=== PATIENT | female | born 1930 | race Caucasian/White ===

== ENCOUNTER 2020-01-29 11:12 | Inpatient (IN) | payer MEDICARE ==
[~2020-01-29] VITALS: Ht 162.6 cm; Wt 60.3 kg
--- NOTE | 2020-01-29 11:28 | PHYS DOC ---
Past Medical History Past Medical History: A-Fib, CHF, Dementia Smoking Status: Unknown if ever smoked Social History Narrative: nh patient General Adult EDM: Chief Complaint: HYPOTENSION HPI: HPI: Patient is a 89 year old female who arrives via EMS from [facility] with a chief complaint of hypotension. Per intermediate staff patient has had increased weakness over last couple days and was incontinent to urine earlier today. Patient was initially hypotensive per EMS but has since become normotensive with IV fluids. She received 200 cc of normal saline prior to arrival. Patient denies any complaints but history physical review of systems are limited by dementia Review of Systems: Review of Systems: Constitutional: Denies fever or chills. [] Eyes: Denies change in visual acuity. [] HENT: Denies nasal congestion or sore throat. [] Respiratory: Denies cough or shortness of breath. [] Cardiovascular: Denies chest pain or edema. [] GI: Denies abdominal pain, nausea, vomiting, bloody stools or diarrhea. [] : Denies dysuria. [] Musculoskeletal: Denies back pain or joint pain. [] Integument: Denies rash. [] Neurologic: Denies headache, focal weakness or sensory changes. [] Endocrine: Denies polyuria or polydipsia. [] Lymphatic: Denies swollen glands. [] Psychiatric: Denies depression or anxiety. [] Review of systems is limited due to dementia but patient denies any complaints Heart Score: Risk Factors: Risk Factors: DM, Current or recent (<one month) smoker, HTN, HLP, family history of CAD, obesity. Risk Scores: Score 0 - 3: 2.5% MACE over next 6 weeks - Discharge Home Score 4 - 6: 20.3% MACE over next 6 weeks - Admit for Clinical Observation Score 7 - 10: 72.7% MACE over next 6 weeks - Early Invasive Strategies Current Medications: Current Medications Medications (Trade) Dose Ordered Sig/Natalia Start Time Stop Time Status Last Admin Dose Admin Sodium Chloride 1,000 ml @ 1,000 mls/hr 1X ONCE 01/29/20 11:30 01/29/20 12:29 UNV Physical Exam: PE: Constitutional: Well developed, well nourished, no acute distress, non-toxic appearance. [] HENT: Normocephalic, atraumatic, bilateral external ears normal, oropharynx moist, no oral exudates, nose normal. [] Eyes: PERRLA, EOMI, conjunctiva normal, no discharge. [] Neck: Normal range of motion, no tenderness, supple, no stridor. [] Cardiovascular: Regular rate and rhythm, peripheral pulses intact Lungs & Thorax: No respiratory distress lungs clear Abdomen: Bowel sounds normal, soft, no tenderness, no masses, no pulsatile masses. [] Skin: Warm, dry, no erythema, no rash. [] Back: No tenderness, no CVA tenderness. [] Extremities: No tenderness, no cyanosis, no clubbing, ROM intact, no edema. [] Neurologic: Alert and oriented X 1, generalized weakness Psychologic: Affect normal, judgement normal, mood normal. [] Current Patient Data: Labs: Laboratory Tests Test 01/29/20 11:15 01/29/20 11:32 01/29/20 11:38 White Blood Count 9.7 x10^3/uL Red Blood Count 4.47 x10^6/uL Hemoglobin 14.0 g/dL Hematocrit 41.5 % Mean Corpuscular Volume 93 fL Mean Corpuscular Hemoglobin 31 pg Mean Corpuscular Hemoglobin Concent 34 g/dL Red Cell Distribution Width 14.5 % Platelet Count 133 x10^3/uL Neutrophils (%) (Auto) 71 % Lymphocytes (%) (Auto) 18 % Monocytes (%) (Auto) 10 % Eosinophils (%) (Auto) 0 % Basophils (%) (Auto) 1 % Neutrophils # (Auto) 6.9 x10^3/uL Lymphocytes # (Auto) 1.7 x10^3/uL Monocytes # (Auto) 1.0 x10^3/uL Eosinophils # (Auto) 0.0 x10^3/uL Basophils # (Auto) 0.1 x10^3/uL Prothrombin Time 15.7 SEC Prothromb Time International Ratio 1.3 Activated Partial Thromboplast Time 38 SEC Stool Occult Blood Negative Sodium Level 135 mmol/L Potassium Level 4.2 mmol/L Chloride Level 103 mmol/L Carbon Dioxide Level 27 mmol/L Anion Gap 5 Blood Urea Nitrogen 21 mg/dL Creatinine 1.2 mg/dL Estimated GFR (Cockcroft-Gault) 42.3 BUN/Creatinine Ratio 18 Glucose Level 116 mg/dL Lactic Acid Level 1.9 mmol/L Calcium Level 8.8 mg/dL Total Bilirubin 0.8 mg/dL Aspartate Amino Transf (AST/SGOT) 17 U/L Alanine Aminotransferase (ALT/SGPT) 15 U/L Alkaline Phosphatase 36 U/L Troponin I Quantitative 0.055 ng/mL SU-Tvf-M-Type Natriuretic Peptide 1702 pg/mL Total Protein 6.9 g/dL Albumin 3.2 g/dL Albumin/Globulin Ratio 0.9 Thyroid Stimulating Hormone (TSH) 1.215 uIU/mL Glucose (Fingerstick) 112 mg/dL Urine Collection Type U cath Urine Color Yellow Urine Clarity Clear Urine pH 7.0 Urine Specific [place] 1.020 Urine Protein Negative mg/dL Urine Glucose (UA) Negative mg/dL Urine Ketones (Stick) Negative mg/dL Urine Blood Negative Urine Nitrite Negative Urine Bilirubin Negative Urine Urobilinogen Dipstick 1.0 mg/dL Urine Leukocyte Esterase Negative Urine RBC 1-2 /HPF Urine WBC 1-4 /HPF Urine Squamous Epithelial Cells Mod /LPF Urine Bacteria Few /HPF Urine Mucus Marked /LPF Current Medications Medications (Trade) Dose Ordered Sig/Natalia Route PRN Reason Start Time Stop Time Status Last Admin Dose Admin Sodium Chloride 1,000 ml @ 1,000 mls/hr 1X ONCE IV 01/29/20 11:30 01/29/20 12:29 DC 01/29/20 11:36 EKG: EKG: EKG interpreted by me normal sinus rhythm with rate 83 left axis deviation nonspecific ST changes [] Radiology/Procedures: Radiology/Procedures: [][facility] [address] [place], [place] [id number] IMAGING REPORT Signed PATIENT: KIANA HUGHES ACCOUNT: [id number] : 1930 LOCATION: ER AGE: 89 SEX: F EXAM STATUS: REG ER ORD. PHYSICIAN: MORGAN PADILLA MD REASON: weakness PROCEDURE: PORTABLE CHEST 1V Examination: PORTABLE CHEST 1V History: Reason: weakness / Spl. Instructions: / History: Comparison/Correlation: None Findings: Portable upright frontal view chest was obtained. Heart size and pulmonary vasculature are normal. Left perihilar density which probably represents vasculature is seen. Moderate size hiatal hernia. No infiltrate or pleural effusion. No pneumothorax. No acute bony process. Impression: Hiatal hernia. Left perihilar density which probably represents vasculature and overlapping shadows. Correlate with previous exams if available. Interval follow-up two-view chest x-ray exam in 12 weeks is recommended if stability is unknown. Electronically signed by: Evens Guerrero MD (01/29/2020 12:21 PM) [id number] DICTATED and SIGNED BY: EVENS GUERRERO MD DATE: 01/29/[address] [facility] [address] [place] [address] IMAGING REPORT Signed PATIENT: KIANA HUGHES ACCOUNT: [id number] : 1930 LOCATION: ER AGE: 89 SEX: F EXAM STATUS: REG ER ORD. PHYSICIAN: MORGAN PADILLA MD REASON: weakness PROCEDURE: CT HEAD WO CONTRAST EXAM: CT head without contrast INDICATION: Weakness COMPARISON: None TECHNIQUE: Axial CT imaging through the head without intravenous contrast. One or more of the following individualized dose reduction techniques were utilized for this examination: 1. Automated exposure control 2. Adjustment of the mA and/or kV according to patient size 3. Use of iterative reconstruction technique. FINDINGS: The ventricles and sulci are moderately enlarged reflecting age-related volume loss. There is moderate periventricular and deep white matter hypoattenuation. Oneal-white matter differentiation is maintained. There is no intracranial hemorrhage, acute infarct, or mass lesion. Basal cisterns are clear. There are calcifications in the internal carotid arteries. The skull and scalp are intact. Paranasal sinuses and mastoid air cells are clear. There are surgical changes of the globes. Orbits are intact. IMPRESSION: 1. No acute intracranial abnormality. 2. Moderate volume loss and moderate white matter disease, likely related to chronic microvascular ischemia. Electronically signed by: Joanna Nickerson MD (01/29/2020 12:34 PM) [id number] DICTATED and SIGNED BY: JOANNA NICKERSON MD DATE: 01/29/20 1234 Course & Med Decision Making: Course & Med Decision Making Pertinent Labs and Imaging studies reviewed. (See chart for details) [] 89-year-old female presents with hypotension. Patient has no complaints and blood pressure is borderline hypotensive on my assessment. Patient given IV fluids and remains clinically well in the ER. Patient will be admitted to Dr. Manley for further evaluation treatment no obvious etiology has been found. Josie Disclaimer: Josie Disclaimer: This electronic medical record was generated, in whole or in part, using a voice recognition dictation system. Departure Departure Impression: Primary Impression: Hypotension Disposition: ADMITTED INPATIENT Admitting Physician: JEY young) Condition: STABLE Referrals: VIJAY LANGSTON MD (PCP) Justicifation of Admission Dx: Justifications for Admission: Justification of Admission Dx: Yes (hypotension) MORGAN PADILLA MD Jan 29, 2020 11:28
[2020-01-29] MEDS ORDERED: IV NORMAL SALINE 1000ML BAG 1,000 ML IV ONE (11:30)
[2020-01-29 11:42] LABS: BASO # 0.1 x10^3/uL (0.0-0.2); BASO % 1 % (0-3); EOS % 0 % (0-3); HEMATOCRIT 41.5 % (36.0-47.0); LYMPH # 1.7 x10^3/uL (1.0-4.8); LYMPH % 18 % (24-48); MEAN CORPUSCULAR HEMOGLOBIN 31 pg (25-35); MEAN CORPUSCULAR HGB CONC 34 g/dL (31-37); MEAN CORPUSCULAR VOLUME 93 fL (79-100); MONO % 10 % (0-9); NEUT # 6.9 x10^3/uL (1.8-7.7); NEUT % 71 % (31-73); PLATELET COUNT 133 x10^3/uL (140-400); RED BLOOD COUNT 4.47 x10^6/uL (3.50-5.40); RED CELL DISTRIBUTION WIDTH 14.5 % (11.5-14.5); WHITE BLOOD COUNT 9.7 x10^3/uL (4.0-11.0)
[2020-01-29 11:52] LABS: FECAL OB PT NEGATIVE (NEG)
[2020-01-29 11:53] LABS: BILIRUBIN,URINE NEGATIVE (NEG); CLARITY,URINE CLEAR; COLOR,URINE YELLOW; NITRITE,URINE NEGATIVE (NEG); PROTEIN,URINE NEGATIVE (NEG-TRACE)
[2020-01-29 11:53] LABS: CALCIUM 8.8 mg/dL (8.5-10.1); CREATININE 1.2 mg/dL (0.6-1.0); GFR 42.3; POTASSIUM 4.2 mmol/L (3.5-5.1)
[2020-01-29 11:55] LABS: PROTHROMBIN TIME PATIENT 15.7 SEC (11.7-14.0)
[2020-01-29 11:58] LABS: ALBUMIN 3.2 g/dL (3.4-5.0); ALBUMIN/GLOBULIN RATIO 0.9 (1.0-1.7); TOTAL BILIRUBIN 0.8 mg/dL (0.2-1.0); TOTAL PROTEIN 6.9 g/dL (6.4-8.2)
[2020-01-29 12:04] LABS: BACTERIA,URINE FEW /HPF (0-FEW); SQUAMOUS EPITHELIAL CELL,UR MOD /LPF
--- NOTE | 2020-01-29 12:24 | RAD ---
Examination: PORTABLE CHEST 1V History: Reason: weakness / Spl. Instructions: / History: Comparison/Correlation: None Findings: Portable upright frontal view chest was obtained. Heart size and pulmonary vasculature are normal. Left perihilar density which probably represents vasculature is seen. Moderate size hiatal hernia. No infiltrate or pleural effusion. No pneumothorax. No acute bony process. Impression: Hiatal hernia. Left perihilar density which probably represents vasculature and overlapping shadows. Correlate with previous exams if available. Interval follow-up two-view chest x-ray exam in 12 weeks is recommended if stability is unknown. Electronically signed by: Evens Carlin MD (01/29/2020 12:21 PM) [id number]
--- NOTE | 2020-01-29 12:37 | RAD ---
EXAM: CT head without contrast INDICATION: Weakness COMPARISON: None TECHNIQUE: Axial CT imaging through the head without intravenous contrast. One or more of the following individualized dose reduction techniques were utilized for this examination: 1. Automated exposure control 2. Adjustment of the mA and/or kV according to patient size 3. Use of iterative reconstruction technique. FINDINGS: The ventricles and sulci are moderately enlarged reflecting age-related volume loss. There is moderate periventricular and deep white matter hypoattenuation. Oneal-white matter differentiation is maintained. There is no intracranial hemorrhage, acute infarct, or mass lesion. Basal cisterns are clear. There are calcifications in the internal carotid arteries. The skull and scalp are intact. Paranasal sinuses and mastoid air cells are clear. There are surgical changes of the globes. Orbits are intact. IMPRESSION: 1. No acute intracranial abnormality. 2. Moderate volume loss and moderate white matter disease, likely related to chronic microvascular ischemia. Electronically signed by: Joanna Nickerson MD (01/29/2020 12:34 PM) [id number]
[2020-01-29] MEDS ORDERED: ONDANSETRON PF 4 MG/2 ML VIAL. IV PRN (13:30)
--- NOTE | 2020-01-29 14:58 | NUR ---
Patient arrived to room 674 via bed from ER at 1458. Patient alert to self only. VSS. No complaints of pain at this time. Family updated. Will continue to monitor.
[2020-01-29 15:07] VITALS: BP 100/66
[2020-01-29] MEDS ORDERED: DONE5TAB56 PO (17:22)
[2020-01-29] MEDS ORDERED: LEVO25TA4 PO (17:22)
[2020-01-29] MEDS ORDERED: CHOL500021 PO (17:22)
[2020-01-29] MEDS ORDERED: ASPI-886 PO (17:22)
[2020-01-29] MEDS ORDERED: SERT100T PO (17:22)
[2020-01-29 19:50] VITALS: BP 127/77
--- NOTE | 2020-01-29 19:55 | HP ---
ADMIT DATE: 01/29/2020 CHIEF COMPLAINT: Hypotension. HISTORY OF PRESENT ILLNESS: The patient is a pleasant elderly female who presented from a half-way. Basically, she came in because she was weak. She was having mental status change. When she got to the ER, she is noted to have blood pressure in the 60s. We gave her some fluids and we have got it up to the 90s, but the patient is still quite weak and confused. I discussed the case with the ER physician. We are going to admit the patient and give her more IV fluids and rule her out for COVID-19 as the half-way she is from has an extensive history of COVID-19. PAST MEDICAL HISTORY: AFib, CHF, and dementia. ALLERGIES: None. FAMILY HISTORY: Diabetes. SOCIAL HISTORY: She does not drink, smoke, or take drugs. She lives at the half-way. She is retired. MEDICATIONS: Reviewed, please refer to the MRAD. REVIEW OF SYSTEMS: Unable to obtain. She is too confused. PHYSICAL EXAMINATION: VITALS: Within normal limits and are stable. GENERAL: She is pleasantly confused. HEENT: Normal cephalic atraumatic, external auditory canals are patent. EYES: Extraocular muscles are intact, pupils are equally round and reactive to light and accommodation. MUSCULOSKELETAL: Well developed, well nourished, good range of motion. ENDOCRINE: No thyromegaly was palpated. LYMPHATICS: No cervical chain or axillary nodes were noted. HEMATOPOIETIC: No bruising. NECK: Supple, no JVD, no thyromegaly was noted. LUNGS: Clear to auscultation in all lung olivarez without rhonchi or wheezing. HEART: RRR, S1, S2 present. Peripheral pulses intact, no obvious murmurs were noted. ABDOMEN: Soft, nontender. Positive bowel sounds no organomegaly, normal bowel sounds. EXTREMITIES: Without any cyanosis, clubbing, or edema. Pedal pulses intact, Homans sign is negative. NEUROLOGIC: She is pleasantly confused, but does try to answer my questions. PSYCHIATRIC: She is pleasantly confused. SKIN: No ulcerations or rashes, good skin turgor, no jaundice. VASCULAR: Good capillary refill, neurovascular bundle appears to be intact. LABORATORY DATA: Hematology is normal. Electrolytes are pending. INR is 1.3. Urinalysis is negative. Stool guaiac testing was negative. Her BNP level was 1702 and troponin was 0.055. TSH was 1.2. DIAGNOSTIC DATA: CT of the head shows volume loss and white matter disease secondary to microvascular ischemia. Chest x-ray, hiatal hernia and a left perihilar density. ASSESSMENT AND PLAN: Critical hypotension, weakness, metabolic encephalopathy, coagulopathy, hyponatremia with a sodium of 135. The patient has been admitted. We will give gentle IV fluids. We will try to resume her home medications. Deep venous thrombosis prophylaxis. Full code. Physical Therapy and Occupational Therapy. We are ruling out COVID-19. PROGNOSIS: Guarded. BEAR CROSS DO DR: DARIA/papi JOB#: [id number] / [id number]
[2020-01-29] MEDS: DONEPEZIL HCL 5 MG TABLET. PO SCH (20:53)
[2020-01-29 23:25] VITALS: BP 107/71
[2020-01-30 03:25] VITALS: BP 111/68
[2020-01-30] MEDS: LEVOTHYROXINE 25 MCG TABLET. PO SCH (06:09)
[2020-01-30 07:59] VITALS: BP 95/54
[2020-01-30] MEDS: SERTRALINE 50 MG TABLET. PO SCH (08:52)
[2020-01-30] MEDS: CHOLECALCIFEROL (VITAMIN D3) 1,000 UNIT TABLET PO SCH (08:52)
[2020-01-30] MEDS: ASPIRIN ENTERIC COATED 81 MG TABLET.DR. PO SCH (08:52)
--- NOTE | 2020-01-30 09:49 | PDOC ---
[employer] PROGRESS NOTE Date of Service DOS: DATE: 01/30/20 TIME: 09:47 Chief Complaint Chief Complaint Hypertension History of Present Illness History of Present Illness Patient with orthostatic hypotension that responded to IV fluid bolus. Discussed with RN, MERLE test pending and plan to discharge back to nursing facility. No acute events overnight Vitals/I&O Vitals/I&O: Vital Signs Date Time Temp Pulse Resp B/P (MAP) Pulse Ox O2 Delivery O2 Flow Rate FiO2 01/30/20 07:59 98.4 78 18 95/54 (68) 91 Room Air 98.4 I & O 01/29/20 01/29/20 01/30/20 15:00 23:00 07:00 Intake Total 1000 ml 100 ml 150 ml Balance 1000 ml 100 ml 150 ml Physical Exam General: Alert Heart: Regular rate Lungs: Clear Abdomen: Soft, No masses Extremities: No clubbing, No cyanosis Skin: No rashes Labs Labs: Laboratory Tests Test 01/29/20 11:15 01/29/20 11:32 01/29/20 11:38 01/29/20 18:00 White Blood Count 9.7 x10^3/uL (4.0-11.0) Red Blood Count 4.47 x10^6/uL (3.50-5.40) Hemoglobin 14.0 g/dL (12.0-15.5) Hematocrit 41.5 % (36.0-47.0) Mean Corpuscular Volume 93 fL (79-100) Mean Corpuscular Hemoglobin 31 pg (25-35) Mean Corpuscular Hemoglobin Concent 34 g/dL (31-37) Red Cell Distribution Width 14.5 % (11.5-14.5) Platelet Count 133 x10^3/uL (140-400) Neutrophils (%) (Auto) 71 % (31-73) Lymphocytes (%) (Auto) 18 % (24-48) Monocytes (%) (Auto) 10 % (0-9) Eosinophils (%) (Auto) 0 % (0-3) Basophils (%) (Auto) 1 % (0-3) Neutrophils # (Auto) 6.9 x10^3/uL (1.8-7.7) Lymphocytes # (Auto) 1.7 x10^3/uL (1.0-4.8) Monocytes # (Auto) 1.0 x10^3/uL (0.0-1.1) Eosinophils # (Auto) 0.0 x10^3/uL (0.0-0.7) Basophils # (Auto) 0.1 x10^3/uL (0.0-0.2) Prothrombin Time 15.7 SEC (11.7-14.0) Prothromb Time International Ratio 1.3 (0.8-1.1) Activated Partial Thromboplast Time 38 SEC (24-38) Stool Occult Blood Negative (NEG) Sodium Level 135 mmol/L (136-145) Potassium Level 4.2 mmol/L (3.5-5.1) Chloride Level 103 mmol/L (98-107) Carbon Dioxide Level 27 mmol/L (21-32) Anion Gap 5 (6-14) Blood Urea Nitrogen 21 mg/dL (7-20) Creatinine 1.2 mg/dL (0.6-1.0) Estimated GFR (Cockcroft-Gault) 42.3 BUN/Creatinine Ratio 18 (6-20) Glucose Level 116 mg/dL (70-99) Lactic Acid Level 1.9 mmol/L (0.4-2.0) Calcium Level 8.8 mg/dL (8.5-10.1) Total Bilirubin 0.8 mg/dL (0.2-1.0) Aspartate Amino Transf (AST/SGOT) 17 U/L (15-37) Alanine Aminotransferase (ALT/SGPT) 15 U/L (14-59) Alkaline Phosphatase 36 U/L (46-116) Troponin I Quantitative 0.055 ng/mL (0.000-0.055) 0.044 ng/mL (0.000-0.055) JK-Gig-G-Type Natriuretic Peptide 1702 pg/mL (0-449) Total Protein 6.9 g/dL (6.4-8.2) Albumin 3.2 g/dL (3.4-5.0) Albumin/Globulin Ratio 0.9 (1.0-1.7) Thyroid Stimulating Hormone (TSH) 1.215 uIU/mL (0.358-3.74) Glucose (Fingerstick) 112 mg/dL (70-99) Urine Collection Type U cath Urine Color Yellow Urine Clarity Clear Urine pH 7.0 (<5.0-8.0) Urine Specific [place] 1.020 (1.000-1.030) Urine Protein Negative mg/dL (NEG-TRACE) Urine Glucose (UA) Negative mg/dL (NEG) Urine Ketones (Stick) Negative mg/dL (NEG) Urine Blood Negative (NEG) Urine Nitrite Negative (NEG) Urine Bilirubin Negative (NEG) Urine Urobilinogen Dipstick 1.0 mg/dL (0.2 mg/dL) Urine Leukocyte Esterase Negative (NEG) Urine RBC 1-2 /HPF (0-2) Urine WBC 1-4 /HPF (0-4) Urine Squamous Epithelial Cells Mod /LPF Urine Bacteria Few /HPF (0-FEW) Urine Mucus Marked /LPF Test 01/30/20 00:20 01/30/20 06:10 Troponin I Quantitative 0.049 ng/mL (0.000-0.055) 0.042 ng/mL (0.000-0.055) Review of Systems Review of Systems: Unable to obtain due to dementia Assessment and Plan Assessmemt and Plan Problems Medical Problems: (1) Hypotension Status: Acute Comment Review of Relevant I have reviewed the following items tammi (where applicable) has been applied. Medications: Current Medications Medications (Trade) Dose Ordered Sig/Natalia Route PRN Reason Start Time Stop Time Status Last Admin Dose Admin Sodium Chloride 1,000 ml @ 1,000 mls/hr 1X ONCE IV 01/29/20 11:30 01/29/20 12:29 DC 01/29/20 11:36 Aspirin (Ecotrin) 81 mg DAILY PO 01/30/20 09:00 01/30/20 08:52 Donepezil HCl (Aricept) 5 mg QHS PO 01/29/20 21:00 01/29/20 20:53 Levothyroxine Sodium (Synthroid) 25 mcg DAILY06 PO 01/30/20 06:00 01/30/20 06:09 Vitamin D (Vitamin D3) 1,000 unit DAILY PO 01/30/20 09:00 01/30/20 08:52 Sertraline HCl (Zoloft) 100 mg DAILY PO 01/30/20 09:00 01/30/20 08:52 Justifications for Admission Other Justification SHARLENE YEH MD Jan 30, 2020 09:49
--- NOTE | 2020-01-30 10:42 | EKG ---
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
[2020-01-30 11:00] VITALS: BP 102/63
[2020-01-30 16:03] VITALS: BP 94/67
--- NOTE | 2020-01-30 17:34 | NUR ---
FREDDIE following. Spoke with RN and reviewed chart. Pt resides in LTC at [facility] and will return on discharge. Pt COVID pending, room air, oral medications. FREDDIE following. Addendum: 01/31/20 at 1717 by WILMER FRAZIER Pt actually in PRISON at [facility]
[2020-01-30 20:00] VITALS: BP 119/71
[2020-01-30] MEDS: DONEPEZIL HCL 5 MG TABLET. PO SCH (20:55)
[2020-01-30 23:57] VITALS: BP 131/58
[2020-01-31] VITALS (7 sets, daily range): BP systolic 110–159; BP diastolic 56–87
--- NOTE | 2020-01-31 04:00 | NUR ---
Patient went into a fib rvr. Orders received. Gave 500 bolus prior to administrating ordered medications and patient converted into sinus rhythm. Holding metoprolol for now. Will continue to monitor.
[2020-01-31] MEDS ORDERED: IV NORMAL SALINE 1000ML BAG 500 ML IV ONE (04:15)
[2020-01-31] MEDS ORDERED: METOPROLOL SUCC 24HR ER 25 MG TAB.ER.24H. PO ONE (04:45)
[2020-01-31] MEDS ORDERED: METOPROLOL TARTRATE 5 MG/5 ML VIAL. IVP ONE (04:45)
[2020-01-31] MEDS: LEVOTHYROXINE 25 MCG TABLET. PO SCH (04:59)
[2020-01-31] MEDS: CHOLECALCIFEROL (VITAMIN D3) 1,000 UNIT TABLET PO SCH (08:33)
[2020-01-31] MEDS: ASPIRIN ENTERIC COATED 81 MG TABLET.DR. PO SCH (08:33)
[2020-01-31] MEDS: SERTRALINE 50 MG TABLET. PO SCH (08:33)
--- NOTE | 2020-01-31 09:27 | PDOC2 ---
EVIN WILLAMS METAL CAN INSPECTOR 01/31/20 0926: CARDIAC CONSULT DATE OF CONSULT Date of Consult DATE: 01/31/20 TIME: 09:20 REASON FOR CONSULT Reason for Consult: AFIB RVR REFERRING PHYSICIAN Referring Physician: Bowen SOURCE Source: Chart review, Patient HISTORY OF PRESENT ILLNESS HISTORY OF PRESENT ILLNESS This is an 89 yo femlae admitted from [facility] for noted hypotension. Reports of some weakness. No complains of chest pain or SOA and appears comfortable currently. Pt appears dehydrated. Unfortunately she is confused but pleasant. She is not in any discomfort. No known hx of arrhythmias or CAD. She did have CVA and deemed to be from small vessel disease from her [facility] visit in 06/2019. PAST MEDICAL HISTORY Cardiovascular: Hyperlipidemia, Other (carotid artery disease) CENTRAL NERVOUS SYSTEM: CVA (lacunar), Dementia (alzheimers) Psych: Anxiety, Other (PTSD) Musculoskeletal: Osteoarthritis Rheumatologic: No pertinent hx Infectious disease: Herpes zoster Renal/: No pertinent hx Endocrine: Hypothyroidism Dermatology: Other (skin CA) FAMILY HISTORY Family History noncontributory to age SOCIAL HISTORY Smoke: No ALCOHOL: none Lives: Shelter CURRENT MEDICATIONS CURRENT MEDICATIONS Current Medications Medications (Trade) Dose Ordered Sig/Natalia Route PRN Reason Start Time Stop Time Status Last Admin Dose Admin Sodium Chloride 500 ml @ 1,000 mls/hr 1X ONCE IV 01/31/20 04:15 01/31/20 04:44 DC 01/31/20 04:14 ALLERGIES ALLERGIES: Coded Allergies: No Known Drug Allergies (Unverified , 01/29/20) ROS Review of System unreliable, pt is only oriented to self PHYSICAL EXAM General: Alert, Cooperative, No acute distress HEENT: Atraumatic, Mucous membr. moist/pink Lungs: Clear to auscultation, Normal air movement Heart: Regular rate (SR), Normal S1, Normal S2, Other (3/6 diastolic murmur to erbs) Abdomen: Soft, No tenderness Extremities: No cyanosis, No edema Skin: No breakdown, No significant lesion Neuro: Normal speech, Sensation intact Psych/Mental Status: Other (confused) MUSCULOSKELETAL: Osteoarthritic changes both hands VITALS/I&O VITALS/I&O: Vital Signs Date Time Temp Pulse Resp B/P (MAP) Pulse Ox O2 Delivery O2 Flow Rate FiO2 01/31/20 07:20 97.8 65 18 129/80 (96) 95 Room Air 97.8 I & O 01/30/20 01/30/20 01/31/20 15:00 23:00 07:00 Intake Total 480 ml 900 ml Balance 480 ml 900 ml ECHOCARDIOGRAM ECHOCARDIOGRAM Rest Echo: 07/05/2019 [facility] Normal left ventricular systolic function. EF~ 65% Technically difficult agitated saline contrast contrast study, inconclusive to assess inter-atrial shunt Mild to moderate aortic regurgitation Mildly dilated sinuses of valsalva (4.0 cm) and proximal ascending aorta (4.0 cm) Normal estimated peak systolic PA pressure of 23 mmHg Trivial pericardial effusion adjacent to the right ventricle ASSESSMENT/PLAN ASSESSMENT/PLAN 1. PAFIB with RVR burst- new finding. Maintaining SR 2. DEEPA vs CKD: likely from dehydration 3. Hypotension: poor hydration. Improved after IVF 4. Alzheimers Dementia 5. Hypothyroidism: on replacement 6. Hx of CVA: last noted 06/2019 ruled from small vessel disease 7. HLP: noted LDL 188 at [facility] Recommendations 1. Low dose metoprolol. Start statin per level. 2. Push fluids. 3. No need for another echo with recent one noted above. 4. Deemed poor candidate for anticoagulation before due to high risk for falls. ASA for stroke prevention 5. Follow up in office with Dr. Foster on March 04 at 1030 AM EDMUND FOSTER MD 01/31/20 1853: CARDIAC CONSULT ASSESSMENT/PLAN ASSESSMENT/PLAN Patient seen and evaluated Paroxysmal atrial fibrillation. Now in sinus rhythm. Continuing low-dose metoprolol with telemetry monitoring. Poor candidate for long-term anticoagulation. Acute kidney injury. Fluids and monitoring of lab. Hypotension. Fluids as above. Improved. Hypothyroidism on replacement. History of a CVA. Continue present treatment and monitoring. Hyperlipidemia. Statins. Alzheimer's dementia. Thank you for allowing us to participate in the care of your patient. EVIN WILLAMS APRN Jan 31, 2020 09:26 EDMUND FOSTER MD Jan 31, 2020 18:53
--- NOTE | 2020-01-31 11:45 | PDOC ---
[employer] PROGRESS NOTE Date of Service DOS: DATE: 01/31/20 TIME: 11:41 Chief Complaint Chief Complaint Hypertension History of Present Illness History of Present Illness 01/30/2020 Patient with orthostatic hypotension that responded to IV fluid bolus. Discussed with RN, COVID test pending and plan to discharge back to nursing facility. No acute events overnight 01/31/2020 Patient feels okay denies any symptoms. She is COVID-19 negative. TTE pending, if normal results may discharge tomorrow. Discussed with RN. Vitals/I&O Vitals/I&O: Vital Signs Date Time Temp Pulse Resp B/P (MAP) Pulse Ox O2 Delivery O2 Flow Rate FiO2 01/31/20 08:00 Room Air 01/31/20 07:20 97.8 65 18 129/80 (96) 95 97.8 I & O 01/30/20 01/30/20 01/31/20 15:00 23:00 07:00 Intake Total 480 ml 900 ml Balance 480 ml 900 ml Physical Exam General: Alert Heart: Regular rate Lungs: Clear Abdomen: Soft, No masses Extremities: No clubbing, No cyanosis Skin: No rashes Review of Systems Review of Systems: All systems negative Assessment and Plan Assessmemt and Plan Problems Medical Problems: (1) Hypotension Status: Acute Comment Review of Relevant I have reviewed the following items tammi (where applicable) has been applied. Medications: Current Medications Medications (Trade) Dose Ordered Sig/Natalia Route PRN Reason Start Time Stop Time Status Last Admin Dose Admin Sodium Chloride 500 ml @ 1,000 mls/hr 1X ONCE IV 01/31/20 04:15 01/31/20 04:44 DC 01/31/20 04:14 Justifications for Admission Other Justification SHARLENE YEH MD Jan 31, 2020 11:45
[2020-01-31 11:50] LABS: CALCIUM 8.8 mg/dL (8.5-10.1); CREATININE 0.8 mg/dL (0.6-1.0); GFR 67.5; MAGNESIUM 2.2 mg/dL (1.8-2.4); POTASSIUM 3.9 mmol/L (3.5-5.1)
--- NOTE | 2020-01-31 17:17 | NUR ---
SW following. Spoke with RN and reviewed chart. FREDDIE phoned and faxed clinicals to [facility] for coordination of care. Pt resides in [facility] at [facility] and will return on discharge. Pt COVID negative. Pt transferred to and [facility]I Mera to follow.
[2020-01-31 17:25] LABS: CHOLESTEROL/HDL RATIO 8.2
[2020-01-31] MEDS ORDERED: ATORVASTATIN CALCIUM 40 MG TABLET. PO SCH (21:00)
[2020-01-31] MEDS: METOPROLOL TART IMMED RELEASE 25 MG TABLET. PO SCH (21:16)
[2020-01-31] MEDS: DONEPEZIL HCL 5 MG TABLET. PO SCH (21:16)
[2020-02-01 02:04] VITALS: BP 114/63
[2020-02-01] MEDS: LEVOTHYROXINE 25 MCG TABLET. PO SCH (06:21)
[2020-02-01 07:04] VITALS: BP 101/60
[2020-02-01] MEDS: CHOLECALCIFEROL (VITAMIN D3) 1,000 UNIT TABLET PO SCH (08:41)
[2020-02-01] MEDS: METOPROLOL TART IMMED RELEASE 25 MG TABLET. PO SCH (08:41)
[2020-02-01] MEDS: ASPIRIN ENTERIC COATED 81 MG TABLET.DR. PO SCH (08:41)
[2020-02-01] MEDS: SERTRALINE 50 MG TABLET. PO SCH (08:42)
[2020-02-01 10:25] VITALS: BP 110/68
--- NOTE | 2020-02-01 11:15 | PDOC ---
[employer] PROGRESS NOTE Date of Service DOS: DATE: 02/01/20 TIME: 11:12 Chief Complaint Chief Complaint Hypotension, Weakness History of Present Illness History of Present Illness 02/01/2020 Pt seen and examined. LINDA RN and CM. Plan to DC to SNU. 01/30/2020 Patient with orthostatic hypotension that responded to IV fluid bolus. Discussed with RN, COVID test pending and plan to discharge back to nursing facility. No acute events overnight 01/31/2020 Patient feels okay denies any symptoms. She is COVID-19 negative. TTE pending, if normal results may discharge tomorrow. Discussed with RN. Vitals/I&O Vitals/I&O: Vital Signs Date Time Temp Pulse Resp B/P (MAP) Pulse Ox O2 Delivery O2 Flow Rate FiO2 02/01/20 10:25 98.2 72 18 110/68 (82) 95 Room Air 98.2 I & O 01/31/20 01/31/20 02/01/20 15:00 23:00 07:00 Intake Total 400 ml 340 ml Balance 400 ml 340 ml Physical Exam General: Alert, Cooperative, No acute distress Heart: Regular rate (SR), Normal S1, Normal S2, Other (3/6 diastolic murmur to erbs) Lungs: Clear Abdomen: Soft, No tenderness Extremities: No cyanosis, No edema Skin: No breakdown, No significant lesion Review of Systems Review of Systems: No SOB. No fever. Assessment and Plan Assessmemt and Plan Problems Medical Problems: (1) Hypotension Status: Acute Assessment: Hypotension Generalized weakness Paroxysmal atrial fib. Hyperlipidemia. Plan: Continue statin. Continue Metoprolol. Continue Home meds. PT OT DC to SNU Appreciate subspecialty input. Comment Review of Relevant I have reviewed the following items tammi (where applicable) has been applied. Medications: Current Medications Medications (Trade) Dose Ordered Sig/Natalia Route PRN Reason Start Time Stop Time Status Last Admin Dose Admin Metoprolol Tartrate (Lopressor) 12.5 mg BID PO 01/31/20 21:00 01/31/20 21:16 Atorvastatin Calcium (Lipitor) 40 mg QHS PO 01/31/20 21:00 01/31/20 21:16 Justifications for Admission Other Justification CASTLE,NIAL K III DO Feb 01, 2020 11:15
--- NOTE | 2020-02-01 11:20 | NUR ---
FREDDIE following. Discussed with RN, pt from [facility]. FREDDIE spoke with pt's daughter/DPOA, Tameka, she does not want patient to go to [facility], she would like a different facility, as she did not have a good experience with the SNU at [facility]. Tameka agreeable to referral to [facility], as well as [facility] for the memory care SNU unit. [facility] memory care unit does not have any bed availability. FREDDIE faxed referral to [facility] to see if they can accept pt and then potential transfer pt to the memory care unit if a bed opens up. Pt's daughter will be at [facility] today, SW to discuss again when she gets here. Awaiting acceptance decision from [facility] or [facility]. FREDDIE will continue to follow. Addendum: 02/01/20 at 1349 by JESSICA FRAZIER FREDDIE met with pt and pt's daughter, Tameka (no isolation precautions at the time). Tameka agreeable to placement at [facility]. Pt accepted at [facility], transportation arranged for between [id number]. RN and Tameka notified. Pt choice of vendor form completed. No further SW needs.
[2020-02-01] MEDS ORDERED: ATOR40TA59 PO (12:00)
[2020-02-01] MEDS ORDERED: METO25TA4 PO (12:00)
--- NOTE | 2020-02-01 12:01 | SNU/HH DC ---
DISCHARGE ORDERS DISCHARGE INFORMATION: FINAL DIAGNOSIS Problems Medical Problems: (1) Hypotension Status: Acute CONDITION ON DISCHARGE: Stable CODE STATUS: Code Status: DNR/DNI INTERMEDIATE: SNF STAY <30 DAYS: Yes HOSPICE: HOSPICE: No HOSPICE EVAL & TREAT: No LTAC: ADMIT TO LTAC: No POST DISCHARGE ORDERS: ACTIVITY ORDERS: Activity as tolerated DIET AFTER DISCHARGE: Cardiac TREATMENT/EQUIPMENT ORDERS: Physical Therapy For: Evalulation/Treatment Occupational Therapy For: Evaluation/Treatment Speech Language Pathology For: Evaluation/Treatment DISCHARGE MEDICATIONS: Home Meds Active Scripts Metoprolol Tartrate (METOPROLOL TARTRATE) 25 Mg Tablet, 12.5 MG PO BID for . for 30 Days, #30 TAB Prov:CASTLE,NIAL K III DO 02/01/20 Atorvastatin Calcium (ATORVASTATIN CALCIUM) 40 Mg Tablet, 40 MG PO QHS for . for 30 Days, #30 TAB Prov:CASTLE,NIAL K III DO 02/01/20 Reported Medications Cholecalciferol (Vitamin D3) (D3-50) 50,000 Unit Capsule, 1000 UNITS PO DAILY for supplement for 28 Days, #4 CAP 0 Refills 01/29/20 Sertraline Hcl (ZOLOFT) 100 Mg Tablet, 1 TAB PO DAILY for depression, #30 TAB 5 Refills 01/29/20 Levothyroxine Sodium (LEVOTHYROXINE SODIUM) 25 Mcg Tablet, 1 TAB PO DAILY for hypothyroidism, #30 TAB 5 Refills 01/29/20 Aspirin (ASPIRIN EC) 81 Mg Tablet.dr, 1 TAB PO DAILY for cva, #30 TAB 3 Refills 01/29/20 Donepezil Hcl (ARICEPT) 5 Mg Tablet, 1 TAB PO QHS for dementia for 30 Days, #30 TAB 0 Refills 01/29/20 CASTLE,NIAL K III DO Feb 01, 2020 12:01
--- NOTE | 2020-02-01 14:55 | PDOC ---
PROGRESS NOTES Date of Service DATE: 02/01/20 TIME: 14:54 Subjective Subjective Patient seen and examined Objective Objective Vital Signs Date Time Temp Pulse Resp B/P (MAP) Pulse Ox O2 Delivery O2 Flow Rate FiO2 02/01/20 10:25 98.2 72 18 110/68 (82) 95 Room Air 98.2 Intake and Output 02/01/20 07:00 Intake Total 740 ml Balance 740 ml Intake Oral 740 ml # Voids 9 # Bowel Movements 2 Physical Exam Abdomen: Normal bowel sounds Heart: Regular rate General: mild distress Lungs: Other (Minimally decreased breath sounds) Assessment Assessment Problems Medical Problems: (1) Hypotension Status: Acute Paroxysmal atrial fibrillation. Now in sinus rhythm. Continuing low-dose metoprolol. Poor candidate for long-term anticoagulation. Acute kidney injury. Fluids and monitoring of lab. Hypotension. Fluids as above. Improved. COVID testing negative Hypothyroidism on replacement. History of a CVA. Continue present treatment and monitoring. Hyperlipidemia. Statins. Alzheimer's dementia. Comment Review of Relevant I have reviewed the following items tammi (where applicable) has been applied. Labs Laboratory Tests Test 01/31/20 10:31 Sodium Level 137 mmol/L (136-145) Potassium Level 3.9 mmol/L (3.5-5.1) Chloride Level 104 mmol/L (98-107) Carbon Dioxide Level 25 mmol/L (21-32) Anion Gap 8 (6-14) Blood Urea Nitrogen 14 mg/dL (7-20) Creatinine 0.8 mg/dL (0.6-1.0) Estimated GFR (Cockcroft-Gault) 67.5 Glucose Level 89 mg/dL (70-99) Calcium Level 8.8 mg/dL (8.5-10.1) Magnesium Level 2.2 mg/dL (1.8-2.4) Triglycerides Level 112 mg/dL (0-150) Cholesterol Level 321 mg/dL (0-200) LDL Cholesterol, Calculated 260 mg/dL (0-100) VLDL Cholesterol, Calculated 22 mg/dL (0-40) Non-HDL Cholesterol Calculated 282 mg/dL (0-129) HDL Cholesterol 39 mg/dL (40-60) Cholesterol/HDL Ratio 8.2 Microbiology 01/29/20 Blood Culture - Preliminary, Resulted NO GROWTH AFTER 3 DAYS Medications Current Medications Sodium Chloride 1,000 ml @ 1,000 mls/hr 1X ONCE IV Last administered on 01/29/20at 11:36; Start 01/29/20 at 11:30; Stop 01/29/20 at 12:29; Status DC Ondansetron HCl (Zofran) 4 mg PRN Q8HRS PRN IV NAUSEA/VOMITING; Start 01/29/20 at 13:30; Stop 01/30/20 at 13:29; Status DC Aspirin (Ecotrin) 81 mg DAILY PO Last administered on 02/01/20at 08:41; Start 01/30/20 at 09:00 Donepezil HCl (Aricept) 5 mg QHS PO Last administered on 01/31/20at 21:16; Start 01/29/20 at 21:00 Levothyroxine Sodium (Synthroid) 25 mcg DAILY06 PO Last administered on 02/01/20at 06:21; Start 01/30/20 at 06:00 Vitamin D (Vitamin D3) 1,000 unit DAILY PO Last administered on 02/01/20at 08:41; Start 01/30/20 at 09:00 Sertraline HCl (Zoloft) 100 mg DAILY PO Last administered on 02/01/20at 08:42; Start 01/30/20 at 09:00 Metoprolol Tartrate (Lopressor Vial) 5 mg 1X ONCE IVP ; Start 01/31/20 at 04:4 5; Stop 01/31/20 at 04:46; Status DC Metoprolol Succinate (Toprol Xl) 25 mg 1X ONCE PO ; Start 01/31/20 at 04:45; Stop 01/31/20 at 04:46; Status DC Sodium Chloride 500 ml @ 1,000 mls/hr 1X ONCE IV Last administered on 01/31/20at 04:14; Start 01/31/20 at 04:15; Stop 01/31/20 at 04:44; Status DC Metoprolol Tartrate (Lopressor) 12.5 mg BID PO Last administered on 01/31/20at 21:16; Start 01/31/20 at 21:00 Atorvastatin Calcium (Lipitor) 40 mg QHS PO Last administered on 01/31/20at 21:16; Start 01/31/20 at 21:00 Active Scripts Active Metoprolol Tartrate 25 Mg Tablet 12.5 Mg PO BID 30 Days Atorvastatin Calcium 40 Mg Tablet 40 Mg PO QHS 30 Days Reported D3-50 (Cholecalciferol (Vitamin D3)) 50,000 Unit Capsule 1,000 Units PO DAILY 28 Days Zoloft (Sertraline Hcl) 100 Mg Tablet 1 Tab PO DAILY Levothyroxine Sodium 25 Mcg Tablet 1 Tab PO DAILY Aspirin Ec (Aspirin) 81 Mg Tablet. 1 Tab PO DAILY Aricept (Donepezil Hcl) 5 Mg Tablet 1 Tab PO QHS 30 Days Vitals/I & O Vital Sign - Last 24 Hours 01/31/20 01/31/20 01/31/20 01/31/20 15:05 16:40 19:21 20:00 Temp 97.6 97.9 100.3 97.6 97.9 100.3 Pulse 89 80 82 Resp 25 25 22 B/P (MAP) 129/77 (94) 145/72 (96) 113/72 (86) Pulse Ox 93 93 94 O2 Delivery Room Air Room Air Room Air Room Air 01/31/20 01/31/20 02/01/20 02/01/20 21:16 23:13 02:04 07:04 Temp 100.1 100.2 98.9 100.1 100.2 98.9 Pulse 82 80 74 71 Resp 20 20 18 B/P (MAP) 113/72 110/73 (85) 114/63 (80) 101/60 (74) Pulse Ox 95 96 94 O2 Delivery Room Air Room Air Room Air 02/01/20 02/01/20 02/01/20 07:35 08:41 10:25 Temp 98.2 98.2 Pulse 71 72 Resp 18 B/P (MAP) 101/60 110/68 (82) Pulse Ox 95 O2 Delivery Room Air Room Air Intake and Output 01/31/20 01/31/20 02/01/20 15:00 23:00 07:00 Intake Total 400 ml 340 ml Balance 400 ml 340 ml Justifications for Admission Other Justification EDMUND PENNINGTON MD Feb 01, 2020 14:55
--- NOTE | 2020-02-01 16:17 | NUR ---
Discharge Note: KIANA HUGHES Discharge instructions and discharge home medications reviewed with Patient and a copy given. All questions have been answered and understanding verbalized. The following instructions and handouts were given: skilled facility packet Discontinued lines and drains: peripheral iv dicontinued Patient discharged [facility]
--- NOTE | 2020-02-03 13:41 | DS ---
DATE OF DISCHARGE: 02/01/2020 ADMISSION DIAGNOSES: Hypotension and possible COVID-19. DISCHARGE DIAGNOSIS: Resolving hypotension. HOSPITAL COURSE: The patient is a pleasant 89-year-old female who is from [place]. We were concerned she could have COVID-19 because of have large outbreak there at that facility. She was hypotensive. We admitted her to the COVID-19 unit, ruled out COVID-19. We gave her IV fluids and empiric IV antibiotics. Consulted Pulmonary and Infectious Disease. Over the next few days, she did well. We discharged to [facility]. DISPOSITION: [facility]. ACTIVITY: As tolerated. DIET: Low sodium. MEDICATIONS: Please see MRAD. TOTAL TIME: [address] [place]OSS DO DR: DARIA/papi JOB#: [id number] / [id number]
== END 2020-02-01 15:35 | DRG 73 ==
LOC: ER 11:12 → 6 SOUTH 13:19 → 2 SOUTH 01-31 16:26
PROVIDERS: ADMIT Internal Medicine; ATTEND Internal Medicine
DX: G90.8 Other disorders of autonomic nervous system (principal); N17.0 Acute kidney failure with tubular necrosis; G93.41 Metabolic encephalopathy; D68.9 Coagulation defect, unspecified; E87.1 Hypo-osmolality and hyponatremia; E86.0 Dehydration; I95.1 Orthostatic hypotension; Z20.828 Contact with and (suspected) exposure to other viral communicable diseases; E03.9 Hypothyroidism, unspecified; E78.5 Hyperlipidemia, unspecified; F02.80 Dementia in other diseases classified elsewhere, unspecified severity, without behavioral disturbance, psychotic disturbance, mood disturbance, and anxiety; G30.9 Alzheimer's disease, unspecified; F43.10 Post-traumatic stress disorder, unspecified; I11.0 Hypertensive heart disease with heart failure; F41.9 Anxiety disorder, unspecified; M19.90 Unspecified osteoarthritis, unspecified site; I48.0 Paroxysmal atrial fibrillation; I50.9 Heart failure, unspecified; K44.9 Diaphragmatic hernia without obstruction or gangrene; Z83.3 Family history of diabetes mellitus; Z86.73 Personal history of transient ischemic attack (TIA), and cerebral infarction without residual deficits
CPT/HCPCS: 36415; 70450; 71045; 80048; 80053; 80061; 81001; 82274; 82962; 83605; 83735; 83880; 84443; 84484; 85025; 85610; 85730; 87040; 93005; 96360; 96361; 99285; J7030; P9612; 97110-GP; 97535-GO; G0378; U0003-CS

== ENCOUNTER 2020-02-09 15:46 | Emergency (ER) | payer MEDICARE ==
[~2020-02-09] VITALS: Ht 144.8 cm; Wt 45.5 kg
[~2020-02-09 15:46] MED LIST: ASPI-886 PO; ATOR40TA59 PO; CHOL500021 PO; DONE5TAB56 PO; LEVO25TA4 PO; METO25TA4 PO; SERT100T PO
--- NOTE | 2020-02-09 16:17 | PHYS DOC ---
Past Medical History Past Medical History: A-Fib, CHF, Dementia (MAIRA BOYD HUNTER TRAPPER) Past Surgical History: Other Additional Past Surgical Histo: UNABLE TO OBTAIN HX (MAIRA BOYD HUNTER TRAPPER) Smoking Status: Unknown if ever smoked Alcohol Use: None (MAIRA BOYD APRN) General Adult EDM: Chief Complaint: MECHANICAL FALL HPI: HPI: Patient is a 89 year old female who presents with here by EMS from [facility] with a unwitnessed fall today and unknown time she was on the floor. Patient has dementia and is alert and oriented to herself. This is her baseline. Patient has a 1 cm laceration to her chin. She has a 2 cm laceration to her right eyebrow. Patient's right eye is bruised and swollen 2+. Patient is on aspirin. Patient denies pain, dizziness, headache, neck pain, back pain, vision changes, chest pain, shortness of breath, abdominal pain, nausea, vomiting, diarrhea. Patient has a history of CHF, A. fib. (MAIRA BOYD HUNTER TRAPPER) Review of Systems: Review of Systems: Constitutional: Denies fever or chills. Fall. [] Eyes: Denies change in visual acuity. [] HENT: Denies nasal congestion or sore throat. [] Respiratory: Denies cough or shortness of breath. [] Cardiovascular: Denies chest pain. Right eye 2+ edema. [] GI: Denies abdominal pain, nausea, vomiting, bloody stools or diarrhea. [] : Denies dysuria. [] Musculoskeletal: Denies back pain or joint pain. [] Integument: Denies rash. laceration to chine and right eye brow. Bruising to right eye brow. [] Neurologic: Denies headache, focal weakness or sensory changes. [] Endocrine: Denies polyuria or polydipsia. [] Lymphatic: Denies swollen glands. [] Psychiatric: Denies depression or anxiety. [] (MAIRA BOYD HUNTER TRAPPER) Heart Score: Risk Factors: Risk Factors: DM, Current or recent (<one month) smoker, HTN, HLP, family history of CAD, obesity. Risk Scores: Score 0 - 3: 2.5% MACE over next 6 weeks - Discharge Home Score 4 - 6: 20.3% MACE over next 6 weeks - Admit for Clinical Observation Score 7 - 10: 72.7% MACE over next 6 weeks - Early Invasive Strategies (MAIRA BOYD APRN) Allergies: Allergies: Allergies Coded Allergies Type Severity Reaction Last Updated Verified No Known Drug Allergies 01/29/20 No (MAIRA BOYD APRN) Physical Exam: PE: Constitutional: Well developed, well nourished, no acute distress, non-toxic appearance. [] HENT: Normocephalic, atraumatic, bilateral external ears normal, oropharynx moist, no oral exudates, nose normal. [] Eyes: PERRLA, EOMI, conjunctiva normal, no discharge. Right eye bruising with 2+ swelling. [] Neck: Normal range of motion, cervical spine tenderness, supple, no stridor. [] Cardiovascular:Heart rate regular rhythm, no murmur [] Lungs & Thorax: Bilateral breath sounds clear to auscultation [] Abdomen: Bowel sounds normal, soft, no tenderness, no masses, no pulsatile masses. [] Skin: Warm, dry, no erythema, no rash. Right eye bruising. Right eye laceration. Chin laceration. [] Back: No tenderness, no CVA tenderness. [] Extremities: No tenderness, no cyanosis, no clubbing, ROM intact, no edema. [] Neurologic: Alert and oriented X 3, normal motor function, normal sensory function, no focal deficits noted. [] Psychologic: Affect normal, judgement normal, mood normal. [] (MAIRA BOYD APRN) EKG: EK and read by Dr Spicer as Sinus Rhythm and no STEMI (MAIRA BOYD APRN) Radiology/Procedures: Radiology/Procedures: [] Impression: [facility] [address] [place] [address] IMAGING REPORT Signed PATIENT: KIANA HUGHES ACCOUNT: [id number] : 1930 LOCATION: ER AGE: 89 SEX: F EXAM STATUS: PRE ER ORD. PHYSICIAN: MAIRA BOYD APRN REASON: fall, unwitness PROCEDURE: PORTABLE CHEST 1V Exam performed: Two viewsbilateral hips and one view chest. Clinical indication:Unwitnessed fall Date of Service: 02/09/2020 Comparison: Single view chest from 01/29/2020 FINDINGS: Single view pelvis and AP and frog-leg lateral radiographs of the hip reveal the osseous structures to be intact and well aligned. The joint space is well-preserved. Evidence of fracture or dislocation is absent. No soft tissue swelling or foreign body seen. Single AP view chest demonstrates normal cardiac mediastinal silhouette. There is mild fullness in the right hilar region. No focal infiltrates, effusion or pneumothorax seen. Impression: No acute abnormality seen in bilateral hips. No acute cardiopulmonary process seen. There is right hilar fullness which may be secondary to a prominent pulmonary artery, hilar mass or secondary to supine position. A follow up upright to view chest x-ray. May be obtained to further evaluate. If the density persists, CT chest with contrast may be obtained. Electronically signed by: Toya Obrien MD (02/09/2020 4:48 PM) [facility] DICTATED and SIGNED BY: TOYA OBRIEN MD DATE: 02/09/20 1648 [facility] [address] [place] [address] IMAGING REPORT Signed PATIENT: KIANA HUGHES ACCOUNT: [id number] : 1930 LOCATION: ER AGE: 89 SEX: F EXAM STATUS: PRE ER ORD. PHYSICIAN: MAIRA BOYD APRN REASON: fall PROCEDURE: CT MAXILLOFACIAL WO CONTRAST Exam: CT head, face, and cervical spine INDICATION: Fall TECHNIQUE: Sequential axial images through the head, face, and cervical spine were obtained without the administration of IV contrast. Comparisons: None FINDINGS: Head: There is a small subdural hematoma along the right tentorium. Additionally there is a small amount of hemorrhage seen layering in the right lateral ventricle. There is no midline shift or sulcal effacement. Patchy hypodensity in the periventricular white matter. No acute vascular territory infarction is identified. Reyes-white distinction is preserved. The ventricular system is within normal limits without compression hydrocephalus. The basal cisterns are well maintained. Face: Minimally displaced fracture involving the posterior inferior wall of the right maxilla. There is blood air level noted in the right maxillary sinus. There is a extra cranial soft tissue scalp contusion overlying the right orbit. Globes and orbital contents are normal. Cervical spine: Vertebral body heights are well-maintained. Grade 1 anterolisthesis of C2 on C3, C3 on C4. Fracture to the cervical spine is not identified. Multilevel spondylotic change in cervical spine with degenerative disc disease greatest at C5-C6. Mild bilateral facet arthropathy is also noted in the cervical spine. Visualized paraspinal soft tissues are unremarkable. IMPRESSION: 1. Small subdural hematoma along the right tentorium no significant mass effect. 2. Small amount of hemorrhage noted layering in the right lateral ventricle. 3. Minimally displaced fracture involving the lateral wall of the right maxilla with hemorrhagic products in the right maxillary sinus. 4. Large extra cranial soft tissue scalp contusion overlying the right orbit. 5. Negative CT C-spine for acute traumatic injury. Exposure: One or more of the following in the visualized dose reduction techniques were utilized for this examination: 1. Automated exposure control 2. Adjustment of the MA and/or KV according to patient size Use of iterative of reconstructive technique FOR INTERNAL CODING PURPOSES Critical result: Findings discussed with MAIRA BOYD at 02/09/2020 5:15 PM. RESULT CODE: (C) Electronically signed by: Missy Hoyos MD (02/09/2020 5:20 PM) [id number] DICTATED and SIGNED BY: MISSY HOYOS MD DATE: 02/09/20 1720 [facility] [address] [place], [place] [id number] IMAGING REPORT Signed PATIENT: KIANA HUGHES ACCOUNT: [id number] : 1930 LOCATION: ER AGE: 89 SEX: F EXAM STATUS: REG ER ORD. PHYSICIAN: MAIRA BOYD APRN REASON: fall, unwitness PROCEDURE: THORACIC SPINE 3V Exam: Thoracic spine 2 views. Lumbar spine 2 views INDICATION: Fall, unwitnessed TECHNIQUE: Frontal and lateral views of the thoracic and lumbar spine Comparisons: None FINDINGS: Thoracic spine: Vertebral body heights and alignment are well-maintained. There is scattered degenerative disc disease noted throughout the thoracic spine. Visualized paraspinal soft tissues are unremarkable. Lumbar spine: Vertebral body heights are well-maintained. Grade 1 anterolisthesis of L4-5 and L5 on S1. Visualized paraspinal soft tissues are unremarkable. IMPRESSION: Moderate spondylotic changes throughout the thoracolumbar spine as described above. Electronically signed by: Missy Hoyos MD (02/09/2020 5:37 PM) [id number] DICTATED and SIGNED BY: MISSY HOYOS MD DATE: 02/09/20 1737 [facility] [address] [place] [address] IMAGING REPORT Signed PATIENT: KIANA HUGHES ACCOUNT: [id number] : 1930 LOCATION: ER AGE: 89 SEX: F EXAM STATUS: REG ER ORD. PHYSICIAN: MAIRA BOYD APRN REASON: ABNORMAL CHEST XRAY PROCEDURE: CT CHEST ABDOMEN PELVIS WO Exam: CT of chest, abdomen and pelvis without contrast INDICATION: Abnormal chest x-ray TECHNIQUE: Sequential axial images through the chest, abdomen and pelvis obtained without IV contrast. Sagittal and coronal reformatted images were reconstructed from the axial data and reviewed. Comparisons: None FINDINGS: Visualized portions of the thyroid are unremarkable. No enlarged mediastinal lymph nodes are identified. Heart size is normal. No pericardial effusion. Moderate coronary artery calcifications. Thoracic aorta has a normal course and caliber. Pulmonary artery is not enlarged. Airways are patent. No consolidation or pneumothorax. No suspicious lung nodules. No pleural effusion or thickening. Evaluation of solid organs is limited secondary to noncontrast technique. Liver, spleen, pancreas, gallbladder and adrenals are unremarkable. No perinephric inflammation or hydronephrosis. No renal or ureteral calculi are identified. Bladder is partially distended and not well evaluated. Uterus is absent. No abnormal adnexal mass. Large and small bowel are unremarkable. Appendix is nonidentified. No free intra-abdominal air or fluid. No obstruction. Aneurysmal dilatation of the infrarenal abdominal aorta measuring up to 3.5 cm. No enlarged intra-abdominal lymph nodes are identified. No suspicious osseous lesions or acute fractures. IMPRESSION: 1. No right hilar mass. 2. No acute process identified within the chest, abdomen or pelvis. 3. Aneurysmal dilatation of the infrarenal abdominal aorta measuring up to 2.5 cm in diameter. Exposure: One or more of the following in the visualized dose reduction techniques were utilized for this examination: 1. Automated exposure control 2. Adjustment of the MA and/or KV according to patient size 3. Use of iterative of reconstructive technique Electronically signed by: Missy Hoyos MD (02/09/2020 7:03 PM) [id number] DICTATED and SIGNED BY: MISSY HOYOS MD DATE: 02/09/201902 (MAIRA BOYD APRN) Course & Med Decision Making: Course & Med Decision Making Pertinent Labs and Imaging studies reviewed. (See chart for details) See HPI. With examination patient had no bruising or deformity or abrasion to her back. She did have tenderness to the cervical spine with palpation. Abdomen is soft and nontender and there is no bruising or swelling. No pain is elicited with pelvic rock. There is no deformities to bilateral hips, rotation or shortening. No extremity edema. Skin pink warm and dry. No joint laxity or swelling. Patient does have full range of motion of her neck. PERRLA. Laceration repair #1 Location: chin 1cm Local anesthesia: None Interrupted sutures/Internal sutures: Dermabond Nerve/ligament/muscle damage: none Cleaning and irrigation: Saline and chlorhexidine Laceration repair #2 Location: Right eyebrow 2cm Local anesthesia: None Interrupted sutures/Internal sutures: Dermabond Nerve/ligament/muscle damage: None Cleaning and irrigation: Saline and chlorhexidine The appropriate timeout was taken. The area was prepped and draped in the usual sterile fashion. The wound was copiously irrigated with normal saline and chlorhexidine. Patient tolerated well without complication. Dressing was applied to the area follow-up education is given to observe for signs and symptoms of infection, bleeding and to follow-up promptly if these occur. Patient can return in 48 hours for a wound recheck. Sutures to be removed in [address] shows: IMPRESSION: 1. Small subdural hematoma along the right tentorium no significant mass effect. 2. Small amount of hemorrhage noted layering in the right lateral ventricle. 3. Minimally displaced fracture involving the lateral wall of the right maxilla with hemorrhagic products in the right maxillary sinus. 4. Large extra cranial soft tissue scalp contusion overlying the right orbit. 5. Negative CT C-spine for acute traumatic injury. No hyphema present and no optic nerve entrapment. I have spoken to Dr. Rodriguez concerning this patient he states she needs to be transferred especially for ENT as we do not have ENT services at this hospital. Dr Spicer has also examined this patient. Patient has been accepted at [facility] by . (MAIRA BOYD APRN) Josie Disclaimer: Dragon Disclaimer: This electronic medical record was generated, in whole or in part, using a voice recognition dictation system. (MAIRA BOYD APRN) Departure Departure Impression: Primary Impression: Subdural hematoma, post-traumatic Qualified Codes: S06.5X0A - Traumatic subdural hemorrhage without loss of consciousness, initial encounter Additional Impression: Maxillary fracture, right side, initial encounter for closed fracture Disposition: 05 TRANSFER OTHER (OPR) Condition: STABLE Referrals: VIJAY LANGSTON MD (PCP) Justicifation of Admission Dx: Justifications for Admission: Justification of Admission Dx: Yes Comments: SUBDURAL HEMATOMA, MAXILLA FRACTURE (MAIRA BOYD APRN) Attending Signature Attending Signature I have reviewed the non-physician practitioner's documentation, personally taken the patient's history, performed an exam and agree with the physical findings, clinical impression, and management plan. In brief patient is an 89-year-old female who experienced mechanical fall prior to arrival. Initial vital signs unremarkable. Exam notable for right periorbital tenderness to palpation as well as ecchymosis to the upper eyelid. On eye inspection patient does have a right-sided subconjunctival hemorrhage. No signs of hyphema present. Extraocular eye movements intact and no signs of orbital nerve entrapment. CT imaging does reveal a small subdural hematoma with ventricular involvement. No signs of retrobulbar hematoma. She does take aspirin daily. Furthermore of note patient does have nondisplaced lateral maxillary fracture. Blood noted in maxillary sinus. Patient's GCS remains at 14 ([id number]) which is baseline for her. Given the patient's age and intracranial pathology as well as orbital wall fracture she will require hospitalization for close monitoring. [facility] [address] [place] [address] IMAGING REPORT Signed PATIENT: KIANA HUGHES ACCOUNT: [id number] : 1930 LOCATION: ER AGE: 89 SEX: F EXAM STATUS: PRE ER ORD. PHYSICIAN: MAIRA BOYD APRN REASON: fall PROCEDURE: CT HEAD AND CERVICAL SPINE WO Exam: CT head, face, and cervical spine INDICATION: Fall TECHNIQUE: Sequential axial images through the head, face, and cervical spine were obtained without the administration of IV contrast. Comparisons: None FINDINGS: Head: There is a small subdural hematoma along the right tentorium. Additionally there is a small amount of hemorrhage seen layering in the right lateral ventricle. There is no midline shift or sulcal effacement. Patchy hypodensity in the periventricular white matter. No acute vascular territory infarction is identified. Reyes-white distinction is preserved. The ventricular system is within normal limits without compression hydrocephalus. The basal cisterns are well maintained. Face: Minimally displaced fracture involving the posterior inferior wall of the right maxilla. There is blood air level noted in the right maxillary sinus. There is a extra cranial soft tissue scalp contusion overlying the right orbit. Globes and orbital contents are normal. Cervical spine: Vertebral body heights are well-maintained. Grade 1 anterolisthesis of C2 on C3, C3 on C4. Fracture to the cervical spine is not identified. Multilevel spondylotic change in cervical spine with degenerative disc disease greatest at C5-C6. Mild bilateral facet arthropathy is also noted in the cervical spine. Visualized paraspinal soft tissues are unremarkable. IMPRESSION: 1. Small subdural hematoma along the right tentorium no significant mass effect. 2. Small amount of hemorrhage noted layering in the right lateral ventricle. 3. Minimally displaced fracture involving the lateral wall of the right maxilla with hemorrhagic products in the right maxillary sinus. 4. Large extra cranial soft tissue scalp contusion overlying the right orbit. 5. Negative CT C-spine for acute traumatic injury. Exposure: One or more of the following in the visualized dose reduction techniques were utilized for this examination: 1. Automated exposure control 2. Adjustment of the MA and/or KV according to patient size Use of iterative of reconstructive technique FOR INTERNAL CODING PURPOSES Critical result: Findings discussed with MAIRA BOYD at 02/09/2020 5:15 PM. RESULT CODE: (C) Electronically signed by: Missy Hoyos MD (02/09/2020 5:20 PM) [id number] DICTATED and SIGNED BY: MISYS HOYOS MD DATE: 02/09/20 172 (HIRAM SPICER DO) Attending Signature I have participated in the care of this patient and I have reviewed and agree with all pertinent clinical information above including history, exam, and recommendations. (MIARA BOYD APRN) MAIRA BOYD APRN Feb 09, 2020 16:17 HIRAM SPICER DO Feb 09, 2020 17:43
--- NOTE | 2020-02-09 16:52 | RAD ---
Exam performed: Two viewsbilateral hips and one view chest. Clinical indication:Unwitnessed fall Date of Service: 02/09/2020 Comparison: Single view chest from 01/29/2020 FINDINGS: Single view pelvis and AP and frog-leg lateral radiographs of the hip reveal the osseous structures to be intact and well aligned. The joint space is well-preserved. Evidence of fracture or dislocation is absent. No soft tissue swelling or foreign body seen. Single AP view chest demonstrates normal cardiac mediastinal silhouette. There is mild fullness in the right hilar region. No focal infiltrates, effusion or pneumothorax seen. Impression: No acute abnormality seen in bilateral hips. No acute cardiopulmonary process seen. There is right hilar fullness which may be secondary to a prominent pulmonary artery, hilar mass or secondary to supine position. A follow up upright to view chest x-ray. May be obtained to further evaluate. If the density persists, CT chest with contrast may be obtained. Electronically signed by: Toya Obrien MD (02/09/2020 4:48 PM) [facility]
--- NOTE | 2020-02-09 17:23 | RAD ---
Exam: CT head, face, and cervical spine INDICATION: Fall TECHNIQUE: Sequential axial images through the head, face, and cervical spine were obtained without the administration of IV contrast. Comparisons: None FINDINGS: Head: There is a small subdural hematoma along the right tentorium. Additionally there is a small amount of hemorrhage seen layering in the right lateral ventricle. There is no midline shift or sulcal effacement. Patchy hypodensity in the periventricular white matter. No acute vascular territory infarction is identified. Reyes-white distinction is preserved. The ventricular system is within normal limits without compression hydrocephalus. The basal cisterns are well maintained. Face: Minimally displaced fracture involving the posterior inferior wall of the right maxilla. There is blood air level noted in the right maxillary sinus. There is a extra cranial soft tissue scalp contusion overlying the right orbit. Globes and orbital contents are normal. Cervical spine: Vertebral body heights are well-maintained. Grade 1 anterolisthesis of C2 on C3, C3 on C4. Fracture to the cervical spine is not identified. Multilevel spondylotic change in cervical spine with degenerative disc disease greatest at C5-C6. Mild bilateral facet arthropathy is also noted in the cervical spine. Visualized paraspinal soft tissues are unremarkable. IMPRESSION: 1. Small subdural hematoma along the right tentorium no significant mass effect. 2. Small amount of hemorrhage noted layering in the right lateral ventricle. 3. Minimally displaced fracture involving the lateral wall of the right maxilla with hemorrhagic products in the right maxillary sinus. 4. Large extra cranial soft tissue scalp contusion overlying the right orbit. 5. Negative CT C-spine for acute traumatic injury. Exposure: One or more of the following in the visualized dose reduction techniques were utilized for this examination: 1. Automated exposure control 2. Adjustment of the MA and/or KV according to patient size Use of iterative of reconstructive technique FOR INTERNAL CODING PURPOSES Critical result: Findings discussed with MAIRA BOYD at 02/09/2020 5:15 PM. RESULT CODE: (C) Electronically signed by: Missy Pettit MD (02/09/2020 5:20 PM) [id number]
--- NOTE | 2020-02-09 17:39 | RAD ---
Exam: Thoracic spine 2 views. Lumbar spine 2 views INDICATION: Fall, unwitnessed TECHNIQUE: Frontal and lateral views of the thoracic and lumbar spine Comparisons: None FINDINGS: Thoracic spine: Vertebral body heights and alignment are well-maintained. There is scattered degenerative disc disease noted throughout the thoracic spine. Visualized paraspinal soft tissues are unremarkable. Lumbar spine: Vertebral body heights are well-maintained. Grade 1 anterolisthesis of L4-5 and L5 on S1. Visualized paraspinal soft tissues are unremarkable. IMPRESSION: Moderate spondylotic changes throughout the thoracolumbar spine as described above. Electronically signed by: Missy Pettit MD (02/09/2020 5:37 PM) [id number]
[2020-02-09 18:22] LABS: BASO # 0.1 x10^3/uL (0.0-0.2); BASO % 1 % (0-3); EOS # 0.2 x10^3/uL (0.0-0.7); EOS % 2 % (0-3); HEMATOCRIT 42.3 % (36.0-47.0); HEMOGLOBIN 14.4 g/dL (12.0-15.5); LYMPH # 1.1 x10^3/uL (1.0-4.8); LYMPH % 11 % (24-48); MEAN CORPUSCULAR HEMOGLOBIN 31 pg (25-35); MEAN CORPUSCULAR HGB CONC 34 g/dL (31-37); MEAN CORPUSCULAR VOLUME 92 fL (79-100); MONO # 0.5 x10^3/uL (0.0-1.1); MONO % 5 % (0-9); NEUT # 8.1 x10^3/uL (1.8-7.7); NEUT % 81 % (31-73); PLATELET COUNT 206 x10^3/uL (140-400); RED BLOOD COUNT 4.61 x10^6/uL (3.50-5.40); RED CELL DISTRIBUTION WIDTH 13.9 % (11.5-14.5)
[2020-02-09 18:28] LABS: CALCIUM 9.1 mg/dL (8.5-10.1); CREATININE 0.9 mg/dL (0.6-1.0); POTASSIUM 4.4 mmol/L (3.5-5.1)
[2020-02-09 18:32] LABS: PROTHROMBIN TIME PATIENT 13.9 SEC (11.7-14.0)
[2020-02-09 18:33] LABS: ALBUMIN 3.6 g/dL (3.4-5.0); ALBUMIN/GLOBULIN RATIO 0.9 (1.0-1.7); TOTAL BILIRUBIN 0.3 mg/dL (0.2-1.0); TOTAL PROTEIN 7.4 g/dL (6.4-8.2)
--- NOTE | 2020-02-09 19:06 | RAD ---
Exam: CT of chest, abdomen and pelvis without contrast INDICATION: Abnormal chest x-ray TECHNIQUE: Sequential axial images through the chest, abdomen and pelvis obtained without IV contrast. Sagittal and coronal reformatted images were reconstructed from the axial data and reviewed. Comparisons: None FINDINGS: Visualized portions of the thyroid are unremarkable. No enlarged mediastinal lymph nodes are identified. Heart size is normal. No pericardial effusion. Moderate coronary artery calcifications. Thoracic aorta has a normal course and caliber. Pulmonary artery is not enlarged. Airways are patent. No consolidation or pneumothorax. No suspicious lung nodules. No pleural effusion or thickening. Evaluation of solid organs is limited secondary to noncontrast technique. Liver, spleen, pancreas, gallbladder and adrenals are unremarkable. No perinephric inflammation or hydronephrosis. No renal or ureteral calculi are identified. Bladder is partially distended and not well evaluated. Uterus is absent. No abnormal adnexal mass. Large and small bowel are unremarkable. Appendix is nonidentified. No free intra-abdominal air or fluid. No obstruction. Aneurysmal dilatation of the infrarenal abdominal aorta measuring up to 3.5 cm. No enlarged intra-abdominal lymph nodes are identified. No suspicious osseous lesions or acute fractures. IMPRESSION: 1. No right hilar mass. 2. No acute process identified within the chest, abdomen or pelvis. 3. Aneurysmal dilatation of the infrarenal abdominal aorta measuring up to 2.5 cm in diameter. Exposure: One or more of the following in the visualized dose reduction techniques were utilized for this examination: 1. Automated exposure control 2. Adjustment of the MA and/or KV according to patient size 3. Use of iterative of reconstructive technique Electronically signed by: Missy Pettit MD (02/09/2020 7:03 PM) [id number]
[2020-02-09 19:43] VITALS: BP 133/88
--- NOTE | 2020-02-12 03:24 | EKG ---
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
== END 2020-02-09 20:00 | disposition short-term general hospital (02) ==
LOC: ER 15:46
DX: S06.5X0A Traumatic subdural hemorrhage without loss of consciousness, initial encounter (principal); S02.40CA Maxillary fracture, right side, initial encounter for closed fracture; S01.111A Laceration without foreign body of right eyelid and periocular area, initial encounter; S01.81XA Laceration without foreign body of other part of head, initial encounter; R60.0 Localized edema; I48.20 Chronic atrial fibrillation, unspecified; I50.9 Heart failure, unspecified; F03.90 Unspecified dementia, unspecified severity, without behavioral disturbance, psychotic disturbance, mood disturbance, and anxiety; W18.39XA Other fall on same level, initial encounter; Y93.89 Activity, other specified; Y92.89 Other specified places as the place of occurrence of the external cause; Y99.8 Other external cause status
CPT/HCPCS: 12013; 36415; 70450; 70486; 71045; 71250; 72072; 72100; 72125; 73521; 74176; 80053; 84484; 85025; 85610; 93005; 99285